=== PATIENT | male | born 1960 | race Caucasian/White ===

== ENCOUNTER 2023-11-28 09:24 | Emergency (ER) | payer MEDICARE ==
[~2023-11-28] VITALS: Ht 185.4 cm; Wt 116.6 kg
[2023-11-28 10:02] LABS: BASOPHILS % (AUTO) 0.7 % (0-1); EOSINOPHILS # (AUTO) 0.2 X10'3 (0-0.9); EOSINOPHILS % (AUTO) 3.8 % (0-6); HEMATOCRIT 45.8 % (42.0-52.0); HEMOGLOBIN 15.4 g/dl (14.0-17.9); LYMPHOCYTES # (AUTO) 1.8 X10'3 (1.1-4.8); LYMPHOCYTES % (AUTO) 27.7 % (21-51); MEAN CORPUSCULAR HEMOGLOBIN 29.8 PG (27.0-31.0); MEAN CORPUSCULAR HGB CONC 33.7 g/dL (33.0-36.5); MEAN CORPUSCULAR VOLUME 88.6 FL (78-98); MONOCYTES # (AUTO) 0.7 X10'3 (0-0.9); MONOCYTES % (AUTO) 10.9 % (2-12); NEUTROPHILS # (AUTO) 3.7 X10'3 (1.8-7.7); NEUTROPHILS % (AUTO) 56.9 % (42-75); PLATELET COUNT 258 X10'3 (140-440); RED BLOOD COUNT 5.17 X10'6 (4.70-6.10); RED CELL DISTRIBUTION WIDTH 14.3 % (11.5-14.5); WHITE BLOOD COUNT 6.4 X10'3 (4.5-11.0)
[2023-11-28 10:23] LABS: ALBUMIN 3.8 G/DL (3.4-5.0); ANION GAP 7 (8-16); BLOOD UREA NITROGEN 28 MG/DL (7-18); BUN/CREATININE RATIO 24.6 (10.0-20.0); CALCIUM 8.9 MG/DL (8.5-10.1); CHLORIDE 106 MMOL/L (99-107); CREATININE 1.14 MG/DL (0.60-1.10); GLUCOSE 89 MG/DL (70-104); PRO BRAIN NATRIURETIC PEPTIDE 33 PG/ML (0-125); SODIUM 141 MMOL/L (135-145); TOTAL CARBON DIOXIDE 28.4 MMOL/L (24-32); eCRCL 73 ML/MIN; eGFR 64 ML/MIN
[2023-11-28] MEDS ORDERED: TRIA1CAP88 PO (12:57)
[2023-11-28] MEDS ORDERED: ATOR20TA PO (12:58)
[2023-11-28] MEDS: scopolamine 1MG/72H patch 1 PATCH PATCH.TD.3 TD STA (13:56)
[2023-11-28] MEDS ORDERED: SCOP1PAT11 TOP (15:11)
[2023-11-28 15:21] VITALS: BP 126/96; PULSE 52; RESP 17; TEMP 97.7; O2SAT 98
== END 2023-11-28 15:22 | disposition home or self-care (01) ==
LOC: ER 09:25
DX: R42 Dizziness and giddiness (principal); Z79.899 Other long term (current) drug therapy
CPT/HCPCS: 36415; 80048; 83880; 84484; 85025; 93005; 99285